=== PATIENT | female | born 1990 | race Caucasian/White ===

== ENCOUNTER 2018-09-26 17:14 | Emergency (ER) | payer MEDICAID ==
[~2018-09-26] VITALS: Ht 167.6 cm; Wt 101.7 kg
[2018-09-26 17:19] VITALS: BP 142/90
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
[2018-09-26 18:42] VITALS: BP 142/90
--- NOTE | 2018-09-26 18:42 | NUR ---
Patient discharged with v/s stable. Written and verbal after care instructions given and explained. Patient alert, oriented and verbalized understanding of instructions. Ambulatory with steady gait. All questions addressed prior to discharge. ID band removed. Patient advised to follow up with PMD. Rx of ERYTHROMYCIN given. Patient educated on indication of medication including possible reaction and side effects. Opportunity to ask questions provided and answered.
== END 2018-09-26 18:42 | disposition home or self-care (01) ==
LOC: MED 17:14
DX: H10.9 Unspecified conjunctivitis (principal)
CPT/HCPCS: 99283

== ENCOUNTER 2018-12-15 01:09 | Emergency (ER) | payer MEDICAID ==
[~2018-12-15] VITALS: Ht 162.6 cm; Wt 98.9 kg
[2018-12-15 01:19] VITALS: BP 150/76
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
[2018-12-15 02:00] VITALS: BP 145/73
--- NOTE | 2018-12-15 02:00 | NUR ---
Patient discharged with v/s stable. Written and verbal after care instructions given and explained. Patient alert, oriented and verbalized understanding of instructions. Ambulatory with steady gait. All questions addressed prior to discharge. ID band removed. Patient advised to follow up with PMD. Rx of Acyclovir, and Prednisone given. Patient educated on indication of medication including possible reaction and side effects. Opportunity to ask questions provided and answered.
== END 2018-12-15 02:00 | disposition home or self-care (01) ==
LOC: MED 01:09
DX: R20.2 Paresthesia of skin (principal); Z88.8 Allergy status to other drugs, medicaments and biological substances
CPT/HCPCS: 99283

== ENCOUNTER 2019-04-20 20:32 | Emergency (ER) | payer MEDICAID, OTHER ==
[~2019-04-20] VITALS: Ht 162.6 cm; Wt 99.8 kg
[2019-04-20 20:51] VITALS: BP 148/99
--- NOTE | 2019-04-20 20:55 | NUR ---
TO JETHRO BARKER, URINE SAMPLE PROVIDED.
--- NOTE | 2019-04-20 21:02 | NUR ---
PT AMBULATED TO ER BED 04
--- NOTE | 2019-04-20 21:10 | NUR ---
29/F PRESENTS TO ED WITH MOTHER, C/O SHARP TO BURNING SUPRAPUBIC/LOWER ABD PAIN, WHICH INTERMITTENTLY RADIATES TO BACK, X1 DAY. PT ALSO C/O HEADACHE. PT DENIES DYSURIA/BURNING WITH URINATION, N/V/D. PT AWAKE AND ALERT, SKIN NORMAL WARM AND DRY, RR EVEN AND UNLABORED. DENIES MED HX OR RX.
[2019-04-20] MEDS ORDERED: KETOROLAC 60 MG/2 ML VIAL IM ONE (21:30)
[2019-04-20 22:12] VITALS: BP 132/92
== END 2019-04-20 22:12 | disposition home or self-care (01) ==
LOC: MED 20:32
DX: R10.32 Left lower quadrant pain (principal); Z88.8 Allergy status to other drugs, medicaments and biological substances
CPT/HCPCS: 81002; 81025; 96372; 99283; J1885

== ENCOUNTER 2019-05-27 19:37 | Emergency (ER) | payer OTHER ==
[~2019-05-27] VITALS: Ht 162.6 cm; Wt 111.6 kg
[2019-05-27 19:59] VITALS: BP 115/75
--- NOTE | 2019-05-27 20:05 | NUR ---
AMBULATED TO LOBBY. ACCOMPANIED BY MOTHER.
--- NOTE | 2019-05-27 20:10 | NUR ---
PT TO BED 9 WITH STEADY GAIT
--- NOTE | 2019-05-27 20:16 | NUR ---
PT CAME TO ER C/O GENERALIZED RASH SINCE YESTERDAY. PT TOOK EMMETT LAST NIGHT AT 6PM AND AGAIN AT 7AM THIS MORNING WITHOUT ANY RELEIF. PT ALSO C/O OF HEADACHE AND BODY ACHES. NO FEVER/CHILLS. DENIES N/V/D. PT DENIES CHANGES IN DETERGENT LOTION OR ENVIRONMENT. PT STATED "I WAS PRESCRIBED TRAMADOL AND TOOK IT YESTERDAY MORNING AND AGAIN AT MIDNIGHT LAST NIGHT." PER PT SHE HAS TAKEN TRAMADOL BEFORE IN THE PAST AND DID NOT BREAK OUT IN A RASH. NKA. NO MED HX. SAFETY MEASURES IN PLACE. WAITING FOR ERMD TO EVALUATE PT.
[2019-05-27] MEDS ORDERED: DEXAMETHASONE 10 MG/ML VIAL IM ONE (20:25)
[2019-05-27] MEDS ORDERED: diphenhydrAMINE 50 MG/ML VIAL IM ONE (20:25)
--- NOTE | 2019-05-27 20:57 | NUR ---
Patient discharged with v/s stable. Written and verbal after care instructions given and explained. Patient alert, oriented and verbalized understanding of instructions. Ambulatory with steady gait. All questions addressed prior to discharge. ID band removed. Patient advised to follow up with PMD. Rx of Atarax and Prednisone was given. Patient educated on indication of medication including possible reaction and side effects. Opportunity to ask questions provided and answered.
[2019-05-27 20:58] VITALS: BP 115/75
== END 2019-05-27 20:57 | disposition home or self-care (01) ==
LOC: MED 19:37
DX: L50.9 Urticaria, unspecified (principal); T40.4X5A Adverse effect of other synthetic narcotics, initial encounter; Z88.8 Allergy status to other drugs, medicaments and biological substances; Y92.89 Other specified places as the place of occurrence of the external cause
CPT/HCPCS: 96372; 96374; 99283; J1100; J1200

== ENCOUNTER 2019-05-28 09:00 | Emergency (ER) | payer OTHER ==
[~2019-05-28] VITALS: Ht 162.6 cm; Wt 105.3 kg
[2019-05-28 09:05] VITALS: BP 138/77
--- NOTE | 2019-05-28 09:15 | NUR ---
WAS SEEN YESTERDAY FOR SAME S/S. C/O OF GEN UPPER BODY RASH W/ ITCHING AND BODY ACHES 05/10. PRESCRIBE WITH BENADRYL. PATIENT STATES SHE HAS NOT YET FILLED THE PRESCIPTION. DENIES SOB. RR EVEN AND UNLABORED. AA0X4. VSS. BED IS DOWN, LOCKED, BED RIAL S 1, ERMD TO SEE PT.
--- NOTE | 2019-05-28 10:30 | NUR ---
DR ETIENNE AT BEDSIDE
[2019-05-28 10:50] VITALS: BP 132/73
--- NOTE | 2019-05-28 10:50 | NUR ---
Patient discharged with v/s stable. Written and verbal after care instructions given and explained REGARDING DRUG RASH. Patient alert, oriented and verbalized understanding of instructions. Ambulatory with steady gait. All questions addressed prior to discharge. ID band removed. Patient advised to follow up with PMD. Rx of PEPCID given. Patient educated on indication of medication including possible reaction and side effects. Opportunity to ask questions provided and answered.
== END 2019-05-28 10:50 | disposition home or self-care (01) ==
LOC: MED 09:00
DX: T40.4X5A Adverse effect of other synthetic narcotics, initial encounter (principal); Z88.8 Allergy status to other drugs, medicaments and biological substances; Y92.89 Other specified places as the place of occurrence of the external cause
CPT/HCPCS: 99282

== ENCOUNTER 2019-07-24 13:26 | Emergency (ER) | payer OTHER ==
[~2019-07-24] VITALS: Ht 162.6 cm; Wt 106.3 kg
[2019-07-24 13:34] VITALS: BP 134/88
--- NOTE | 2019-07-24 13:39 | NUR ---
PT AMBULATED TO BED 4.
--- NOTE | 2019-07-24 13:47 | NUR ---
PT IS TAKING TO XRAY VIA WHEELCHAIR ASSISTED BY ROVING HAND.
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
[2019-07-24] MEDS ORDERED: IBUPROFEN 600 MG TAB PO ONE (14:20)
[2019-07-24 14:59] VITALS: BP 134/88
--- NOTE | 2019-07-24 14:59 | NUR ---
Patient discharged with v/s stable. Written and verbal after care instructions given and explained. Pt encouraged to ice and elevate area to decrease swelling. Patient alert, oriented and verbalized understanding of instructions. Ambulatory with steady gait. All questions addressed prior to discharge. ID band removed. Patient advised to follow up with PMD. Rx of Bacitracin 500units and Ibuprofen 600mg was given. Patient educated on indication of medication including possible reaction and side effects. Opportunity to ask questions provided and answered.
== END 2019-07-24 14:59 | disposition home or self-care (01) ==
LOC: MED 13:26
DX: S60.142A Contusion of left ring finger with damage to nail, initial encounter (principal); Z88.8 Allergy status to other drugs, medicaments and biological substances; Z91.013 Allergy to seafood; Z91.048 Other nonmedicinal substance allergy status; W23.1XXA Caught, crushed, jammed, or pinched between stationary objects, initial encounter; Y93.89 Activity, other specified; Y92.89 Other specified places as the place of occurrence of the external cause; Y99.8 Other external cause status
CPT/HCPCS: 73140; 99283

== ENCOUNTER 2019-09-12 10:14 | Emergency (ER) | payer OTHER ==
[~2019-09-12] VITALS: Ht 157.5 cm; Wt 104.3 kg
[2019-09-12 10:22] VITALS: BP 134/75
--- NOTE | 2019-09-12 10:25 | NUR ---
29 Y/O F C/O ANXIETY. PT STATES SHE DRANK HEAVILY YESTERDAY, TWISTED HER LT ANKLE AND WENT TO THE ER AT [facility] LAST NIGHT. PT STATES WHEN SHE BEGAN HAVING AN ANXIETY ATTACK THIS MORNING. SHE TOOK BENADRYL THIS MORNING, STATES THAT USUALLY HELPS HER CALM DOWN, IT DID NOT THIS TIME. PT STATES ANKLE PAIN 04/09. PT POSITIONED FOR COMFORT, BED LOWERED, SIDE RAIL X1 IN PLACE. MOTHER AT BEDSIDE. MEDHX: ANXIETY ALLERGIES: LORAZEPAM, SHELL FISH
--- NOTE | 2019-09-12 10:25 | NUR ---
TO ED 02, REPORT TO LISA BUCK
--- NOTE | 2019-09-12 10:29 | NUR ---
EKG AT BEDSIDE.
[2019-09-12] MEDS ORDERED: DIAZEPAM 5 MG TAB PO ONE (10:45)
--- NOTE | 2019-09-12 10:53 | NUR ---
PT GIVEN BLANKET, REPOSITIONED FOR COMFORT, LIGHTS DIMMED. PT VERBALIZED UNDERSTANDING OF MEDICATION GIVEN. MOTHER AT BEDSIDE.
--- NOTE | 2019-09-12 11:04 | NUR ---
PT IS RESTING/SLEEPING. MOTHER AT BEDSIDE, STATES PT IS MORE RELAXED AT THIS TIME.
--- NOTE | 2019-09-12 11:18 | NUR ---
PT SITTING UP IN BED, STATES SHE FEELS BETTER, PAIN AND PRESSURE IN CHEST IS GONE.
[2019-09-12 11:49] VITALS: BP 134/75
--- NOTE | 2019-09-12 11:49 | NUR ---
Patient discharged with v/s stable. Written and verbal after care instructions given and explained. Patient alert, oriented and verbalized understanding of instructions. Ambulatory with steady gait. All questions addressed prior to discharge. ID band removed. Patient advised to follow up with PMD. Rx of VALIUM given. Patient educated on indication of medication including possible reaction and side effects. Opportunity to ask questions provided and answered.
== END 2019-09-12 11:49 | disposition home or self-care (01) ==
LOC: MED 10:14
DX: F41.0 Panic disorder [episodic paroxysmal anxiety] (principal); Z88.8 Allergy status to other drugs, medicaments and biological substances
CPT/HCPCS: 93005; 99284

== ENCOUNTER 2021-01-27 02:00 | Emergency (ER) | payer OTHER ==
[~2021-01-27] VITALS: Ht 162.6 cm; Wt 113.4 kg
[2021-01-27 02:04] VITALS: BP 143/90
[2021-01-27] MEDS ORDERED: KETOROLAC 15 MG/ML VIAL IVP ONE (02:20)
[2021-01-27] MEDS ORDERED: NACL 0.9% 1,000 ML IV ONE (02:20)
[2021-01-27] MEDS ORDERED: IBUP-2213 PO (03:39)
[2021-01-27] MEDS ORDERED: METO-485 PO (03:39)
[2021-01-27 03:53] VITALS: BP 143/90
== END 2021-01-27 03:53 | disposition home or self-care (01) ==
LOC: MED 02:00
DX: R51.9 Headache, unspecified (principal); Z88.8 Allergy status to other drugs, medicaments and biological substances
CPT/HCPCS: 70450; 96361; 96374; 99284; J1885; J7030

== ENCOUNTER 2021-01-28 23:33 | Emergency (ER) | payer OTHER ==
[~2021-01-28] VITALS: Ht 162.6 cm; Wt 114.3 kg
[~2021-01-28 23:33] MED LIST: IBUP-2213 PO; METO-485 PO
[2021-01-28 23:38] VITALS: BP 140/91
--- NOTE | 2021-01-28 23:42 | NUR ---
PATIENT AMBUALTED TO LOBBY WITH STEADY GAIT.
--- NOTE | 2021-01-28 23:57 | NUR ---
PATIENT AMBUALTED TO BED 7 WITH STEADY GAIT.
--- NOTE | 2021-01-29 00:10 | NUR ---
PATIENT PRESENTS TO ED WITH C/O HEADACHE . DENIES N/V/D; SKIN IS PINK/WARM/DRY; AAOX4 WITH EVEN AND STEADY GAIT; HR EVEN AND REGULAR; PT DENIES ANY FEVER, CP, SOB, OR COUGH AT THIS TIME; VSS; PATIENT POSITIONED FOR COMFORT; HOB ELEVATED; BEDRAILS UP X2; BED DOWN. ER MD MADE AWARE OF PT STATUS.
[2021-01-29] MEDS ORDERED: HYDROcodone/APAP 5/325 MG 1 TAB TAB PO ONE (00:35)
[2021-01-29] MEDS ORDERED: ACET-503 PO (02:14)
[2021-01-29 02:20] VITALS: BP 134/82
--- NOTE | 2021-01-29 02:23 | NUR ---
PT STATES IS FEELING BETTERPatient discharged with v/s stable. Written and verbal after care instructions given and explained. Patient alert, oriented and verbalized understanding of instructions. Ambulatory with steady gait. All questions addressed prior to discharge. ID band removed. Patient advised to follow up with PMD. Rx of TYLENOL WITH CODEINE given. Patient educated on indication of medication including possible reaction and side effects. Opportunity to ask questions provided and answered.
== END 2021-01-29 02:23 | disposition home or self-care (01) ==
LOC: MED 23:33
DX: R51.9 Headache, unspecified (principal); R11.0 Nausea
CPT/HCPCS: 99283

== ENCOUNTER 2021-02-11 07:50 | Emergency (ER) | payer OTHER ==
[~2021-02-11] VITALS: Ht 162.6 cm; Wt 113.4 kg
[~2021-02-11 07:50] MED LIST changes: +ACET-503 PO
[2021-02-11 07:54] VITALS: BP 131/73
--- NOTE | 2021-02-11 07:56 | NUR ---
Pt ambulated to ER bed 7 with a steady gait.
--- NOTE | 2021-02-11 07:58 | NUR ---
Dr. Ambrose at pt bedside for further evaluation.
--- NOTE | 2021-02-11 08:04 | NUR ---
31 Y/O F BIB SELF FROM HOME, PATIENT PRESENTS TO ED WITH EPIGASTRIC PAIN THAT STARTED LAST NIGHT AROUND 1899. PT STATES SHE STARTED HAVING A SUDDEN SHARP PAIN LAST NIGHT AND IT HAS NOT GONE AWAY, DENIES CONSTIPATION OR BURNING DURING URINATION. DENIES N/V/D; SKIN IS PINK/WARM/DRY; AAOX4 WITH EVEN AND STEADY GAIT; LUNGS CLEAR BL; HR EVEN AND REGULAR; PT DENIES ANY FEVER, CP, SOB, OR COUGH AT THIS TIME; PATIENT STATES PAIN OF 10/10 AT THIS TIME; VSS; PATIENT POSITIONED FOR COMFORT; HOB ELEVATED; BEDRAILS UP X2; BED DOWN. ER MADE AWARE OF PT STATUS. PMH: NONE NKA MED: IBUPROFEN (LAST DOSE 600MG 02/10 @1900 NO RELIEF)
[2021-02-11] MEDS ORDERED: DICYCLOMINE HCL LIQUID 20 MG, ALUMINUM HYD/MAG/SIMETHICONE 30 ML, LIDOCAINE VISCOUS 2% ... PO ONE ×3 (08:05)
[2021-02-11] MEDS ORDERED: DICYCLOMINE HCL LIQUID 10 MG/5 ML UDC ONE (08:06)
[2021-02-11] MEDS ORDERED: ALUMINUM HYD/MAG/SIMETHICONE 30 ML UDC ONE (08:06)
[2021-02-11] MEDS ORDERED: LIDOCAINE VISCOUS 2% 20 ML UDC ONE (08:06)
--- NOTE | 2021-02-11 08:12 | NUR ---
PT IS UNABLE TO GIVE URINE AT THIS TIME.
[2021-02-11 08:18] LABS: BASOPHILS # (AUTO) 0.1 K/uL (0.00-0.22); BASOPHILS % (AUTO) 0.7 % (0.0-2.0); EOSINOPHILS # (AUTO) 0.3 K/uL (0-0.4); EOSINOPHILS % (AUTO) 3.3 % (0.0-4.0); HEMATOCRIT 39.9 % (36-48); HEMOGLOBIN 13.4 g/dL (12.0-16.0); LYMPHOCYTES % (AUTO) 31.6 % (20.5-51.1); MEAN CORPUSCULAR HEMOGLOBIN 29 pg (27-31); MEAN CORPUSCULAR HGB CONC 34 g/dL (33-37); MONOCYTES # (AUTO) 0.5 K/uL (0.8-1.0); MONOCYTES % (AUTO) 5.5 % (1.7-9.3); NEUTROPHILS # (AUTO) 5.7 K/uL (1.8-7.7); NEUTROPHILS % (AUTO) 58.9 % (42.2-75.2); PLATELET COUNT (AUTO) 403 K/uL (140-450); RED BLOOD CELL COUNT(AUTO) 4.64 MIL/uL (4.20-5.40); RED CELL DISTRIBUTION WIDTH 12.8 % (11.6-13.7); WHITE BLOOD COUNT (AUTO) 9.6 K/uL (4.8-10.8)
[2021-02-11 08:31] LABS: ALBUMIN 3.8 g/dL (3.4-5.0); ANION GAP 9.8 (8-16); CARBON DIOXIDE 27.4 mmol/L (21-32); CREATININE 0.7 mg/dL (0.6-1.3); POTASSIUM 4.2 mmol/L (3.5-5.1); TOTAL BILIRUBIN 0.3 mg/dL (0.0-1.0)
[2021-02-11] MEDS ORDERED: FAMOTIDINE 20 MG TAB PO ONE (09:20)
[2021-02-11] MEDS ORDERED: METOCLOPRAMIDE 10 MG TAB PO ONE (09:20)
--- NOTE | 2021-02-11 10:07 | NUR ---
Dr. Ambrose is evaluating the patient at bedside.
[2021-02-11 10:12] LABS: APPEARANCE,URINE CLEAR (CLEAR); BILIRUBIN,URINE NEGATIVE (NEGATIVE); BLOOD, URINE 3+ (NEGATIVE); COLOR,URINE YELLOW (YELLOW); LEUKOCYTE ESTERASE ,URINE NEGATIVE (NEGATIVE); NITRITE, URINE NEGATIVE (NEGATIVE); PH,URINE 6.5 (5.0-9.0); UGLUCOSE NEGATIVE (NEGATIVE)
[2021-02-11] MEDS ORDERED: FAMO-90 PO (10:12)
[2021-02-11 10:27] VITALS: BP 131/73
--- NOTE | 2021-02-11 10:28 | NUR ---
Patient discharged with v/s stable. Written and verbal after care instructions given and explained. Patient alert, oriented and verbalized understanding of instructions. Ambulatory with steady gait. All questions addressed prior to discharge. ID band removed. Patient advised to follow up with PMD. Rx of FAMOTIDINE given. Patient educated on indication of medication including possible reaction and side effects. Opportunity to ask questions provided and answered.
[2021-02-11 10:44] LABS: RBC,URINE 11-20 (MOD) /HPF (0-5); WBC,URINE 0-5 /HPF (0-5)
== END 2021-02-11 10:28 | disposition home or self-care (01) ==
LOC: MED 07:50
DX: R10.13 Epigastric pain (principal); Z88.8 Allergy status to other drugs, medicaments and biological substances; Z79.899 Other long term (current) drug therapy
CPT/HCPCS: 36415; 80053; 81001; 81025; 83690; 85025; 99284; J8597

== ENCOUNTER 2021-04-15 06:16 | Day surgery (SDC) | payer OTHER ==
[~2021-04-15] VITALS: Ht 162.6 cm; Wt 114.3 kg
[~2021-04-15 06:16] MED LIST changes: +FAMO-90 PO
== END 2021-04-15 08:22 | disposition home or self-care (01) ==
LOC: MDS 06:16 → MMU 06:28 → MDS 08:22
PROVIDERS: ATTEND Internal Medicine Gastroenterology
DX: R10.12 Left upper quadrant pain (principal); K21.00 Gastro-esophageal reflux disease with esophagitis, without bleeding; E66.01 Morbid (severe) obesity due to excess calories; Z68.41 Body mass index [BMI] 40.0-44.9, adult; Z79.899 Other long term (current) drug therapy
CPT/HCPCS: 81025

== ENCOUNTER 2021-08-22 20:29 | Emergency (ER) | payer OTHER ==
[~2021-08-22] VITALS: Ht 162.6 cm; Wt 117.0 kg
[2021-08-22 20:43] VITALS: BP 121/77
--- NOTE | 2021-08-22 20:51 | NUR ---
PATIENT SENT TO [facility]
--- NOTE | 2021-08-22 21:43 | NUR ---
CALLED FOR PATIENT-- NO ANSWER AT THIS TIME
--- NOTE | 2021-08-22 22:34 | NUR ---
PATIENT LEFT WITHOUT BEING SEEN BY DR. FREY. NO FURTHER CARE PROVIDED FOR PATIENT.
--- NOTE | 2021-08-22 22:34 | NUR ---
CALLED FOR PATIENT-- NO ANSWER AT THIS TIME
== END 2021-08-22 21:43 | disposition left against medical advice (07) ==
LOC: MED 20:29
DX: M54.2 Cervicalgia (principal); R13.10 Dysphagia, unspecified; Z53.21 Procedure and treatment not carried out due to patient leaving prior to being seen by health care provider

== ENCOUNTER 2022-07-20 09:48 | Emergency (ER) | payer OTHER ==
[~2022-07-20] VITALS: Ht 162.6 cm; Wt 112.9 kg
[2022-07-20 10:05] VITALS: BP 127/85
--- NOTE | 2022-07-20 10:11 | NUR ---
PT AMB TO BED 12.
--- NOTE | 2022-07-20 11:02 | NUR ---
32F PRESENTS TO ED WITH C/O 8/10 SHARP/BURNING LIKE EPIGASTRIC PAIN X 1MONTH. PT REPORTS CONSTANT PAIN THAT WORSENS AFTER EATING. PT STATES PAIN RADIATES FROM EPIGASTRIC TO LOWER BACK. REPORTS DIARRHEA BUT DENIES N/V, URINARY SYMPTOMS, FEVERS, CHILLS. DENIES TAKING MEDICATION FOR SYMPTOMS.
--- NOTE | 2022-07-20 13:00 | NUR ---
ULTRASOUND AT BEDSIDE.
[2022-07-20 13:24] LABS: BASOPHILS # (AUTO) 0.1 K/uL (0.00-0.22); BASOPHILS % (AUTO) 0.7 % (0.0-2.0); EOSINOPHILS # (AUTO) 0.2 K/uL (0-0.4); EOSINOPHILS % (AUTO) 2.5 % (0.0-4.0); HEMATOCRIT 38.8 % (36-48); HEMOGLOBIN 12.8 g/dL (12.0-16.0); LYMPHOCYTES # (AUTO) 2.7 K/uL (2.5-16.5); LYMPHOCYTES % (AUTO) 28.9 % (20.5-51.1); MEAN CORPUSCULAR HEMOGLOBIN 28 pg (27-31); MEAN CORPUSCULAR HGB CONC 33 g/dL (33-37); MEAN CORPUSCULAR VOLUME 85.3 fL (80-94); MONOCYTES # (AUTO) 0.5 K/uL (0.8-1.0); MONOCYTES % (AUTO) 5.3 % (1.7-9.3); NEUTROPHILS # (AUTO) 5.8 K/uL (1.8-7.7); NEUTROPHILS % (AUTO) 62.6 % (42.2-75.2); PLATELET COUNT (AUTO) 356 K/uL (140-450); RED BLOOD CELL COUNT(AUTO) 4.55 MIL/uL (4.20-5.40); RED CELL DISTRIBUTION WIDTH 13.7 % (11.6-13.7); WHITE BLOOD COUNT (AUTO) 9.3 K/uL (4.8-10.8)
[2022-07-20 13:38] LABS: ALBUMIN 3.6 g/dL (3.4-5.0); CARBON DIOXIDE 26.9 mmol/L (21-32); CREATININE 0.6 mg/dL (0.6-1.3); POTASSIUM 3.9 mmol/L (3.5-5.1); TOTAL BILIRUBIN 0.5 mg/dL (0.0-1.0)
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
[2022-07-20 14:13] LABS: APPEARANCE,URINE SL CLOUDY (CLEAR); BILIRUBIN,URINE NEGATIVE (NEGATIVE); BLOOD, URINE 2+ (NEGATIVE); COLOR,URINE YELLOW (YELLOW); LEUKOCYTE ESTERASE ,URINE TRACE (NEGATIVE); NITRITE, URINE NEGATIVE (NEGATIVE); UGLUCOSE NEGATIVE (NEGATIVE)
[2022-07-20 14:22] VITALS: BP 109/67
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
[2022-07-20 14:34] LABS: OTHER CASTS, URINE None Seen /LPF (None Seen); WBC,URINE 0-5 /HPF (0-5)
== END 2022-07-20 14:22 | disposition home or self-care (01) ==
LOC: MED 09:48
DX: R10.13 Epigastric pain (principal)
CPT/HCPCS: 36415; 76705; 80053; 81001; 81025; 83690; 85025; 99285; Q0092